=== PATIENT | female | born 1960 | race Caucasian/White ===

== ENCOUNTER 2016-10-14 11:59 | Emergency (ER) | payer SELFPAY ==
[~2016-10-14] VITALS: Ht 165.1 cm; Wt 90.0 kg
[2016-10-14 13:03] LABS: CHLORIDE 110 mEq/L (99-109); POTASSIUM 3.4 mEq/L (3.7-5.4); SODIUM 143 mEq/L (136-147)
[2016-10-14 13:05] LABS: GLUCOSE 85 mg/dL (70-99)
[2016-10-14 13:06] LABS: ANION GAP 13 MEQ/L (2-14)
[2016-10-14 13:09] LABS: GFR ESTIMATE (CALCULATED) > 59 mL/min/
[2016-10-14 13:10] LABS: UREA NITROGEN (BUN) 13 mg/dL (9-23)
[2016-10-14 13:13] LABS: TROP-I INTERPRETATION NEGATIVE; TROPONIN-I < 0.01 ng/mL (0.0-0.30)
[2016-10-14 13:15] LABS: HEMATOCRIT 42.2 % (36.0-46.0); MCH 27.8 PG (29.0-34.0); MCHC 33.4 G/DL (30.0-36.0); MCV 83.1 FL (83-99); MEAN PLAT.VOLUME 11.9 uM^3 (9.5-12.4); PLATELET COUNT 172 K/uL (156-360); RBC DIS.WIDTH-CV 13.9 % (11.8-14.6); RBC DIS.WIDTH-SD 41.4 % (39-53); RED BLOOD COUNT 5.08 M/uL (3.80-5.20); WHITE BLOOD COUNT 4.8 K/uL (4.1-10.2)
[2016-10-14 14:55] LABS: TROP-I INTERPRETATION NEGATIVE; TROPONIN-I < 0.01 ng/mL (0.0-0.30)
[2016-10-14] MEDS ORDERED: NORCO 5/3251 TABLET PO (16:06)
[2016-10-14] MEDS ORDERED: PREDNISONE50 MG PO (16:06)
[2016-10-14 16:33] VITALS: BP 141/102
== END 2016-10-14 16:36 | disposition home or self-care (01) ==
LOC: EME 11:59
PROVIDERS: Emergency Medicine
DX: R07.9 Chest pain, unspecified (principal); F17.200 Nicotine dependence, unspecified, uncomplicated
CPT/HCPCS: 71020; 71275; 80048; 84484; 85027; 93005; 99281; 99284; J7030